=== PATIENT | male | born 1970 | race Two or more races ===

== ENCOUNTER → 2025-05-26 | Outpatient (CLI) | payer OTHER, SELFPAY ==
--- NOTE | 2025-05-26 09:37 | XR_ITS ---
Examination: Toes, left foot first digit 3 views Technique: Toes AP oblique lateral 3 views first digit 3 views Date and time of exam: May 26, 2025 10:00 AM INDICATIONS: Injury to the first digit 5 days ago with pain FINDINGS: No fracture or dislocation. No foreign body IMPRESSION: No fracture or dislocation.
== END | disposition home or self-care (01) ==
LOC: CDIM 09:16
PROVIDERS: PCP Physician Assistant; Referring Provider Physician Assistant; Visit Provider Physician Assistant
DX: S90.932A Unspecified superficial injury of left great toe, initial encounter (principal); X58.XXXA Exposure to other specified factors, initial encounter
CPT/HCPCS: 73660